=== PATIENT | female | born 1935 | race Caucasian/White ===

== ENCOUNTER → 2020-04-29 | Outpatient (REF) ==
[~2020-04-29] MED LIST: ARICEPT 5MG PO; ASPIRIN 81M81 MG/TA2 PO; COLACE 100100 MG/CAP PO; IMODIUM 2MG CAPS2 MG; KLOR-CON M2020 MEQ PO; LASIX 20MG TABL20 MG; LASIX 20MG TABL20 MG PO; LASIX 40MG TABL40 MG PO; MULTI VITAMINS1 TAB PO; NAMENDA 10MG TA10 MG PO; NO HOME MEDICATIONS; NORCO 325 MG-51 TAB PO; PERCOCET 325 MG1 TA2 PO; SODIUM BICARBO650 MG PO; TOPROL XL 25MG25 MG PO; VITAMIN D31000 IU PO; ZESTRIL 20MG TA20 MG PO
== END ==
LOC: ZCOL.LAB 13:01
DX: E87.5 Hyperkalemia (principal)

== ENCOUNTER 2020-08-12 17:33 | Inpatient (IN) | payer MEDICARE, OTHER ==
[~2020-08-12] VITALS: Ht 160 cm; Wt 54.1 kg
[2020-08-12 18:40] LABS: BASO % 0.1 % (0.0-2.0); GRAN # 11.7 (1.4-6.5); GRAN % 83.5 % (42.2-75.2); HEMATOCRIT 39.3 % (37.0-47.0); HEMOGLOBIN 12.2 g/dl (12.5-16.0); LYMPH # 0.9 (1.2-3.4); LYMPH % 6.5 % (20.0-51.0); MEAN CELL VOLUME 97 fl (80.0-100.0); MEAN CORPUSCULAR HEMOGLOBIN 30 pg (27.0-31.0); MEAN CORPUSCULAR HGB CONC 31 g/dl (33.0-37.0); MEAN PLATELET VOLUME 11.4 fl (7.4-10.4); MONO # 1.3 (0.1-0.6); MONO % 9.3 % (1.7-9.3); PLATELET COUNT 251 K/mm3 (130-400); RED BLOOD COUNT 4.05 M/mm3 (4.10-5.30); REDCELL DISTRIBUTION WIDTH-CV 15.1 % (11.5-14.5)
[2020-08-12 19:05] LABS: BILIRUBIN,TOTAL 0.6 mg/dL (0.0-1.0); C-REACTIVE PROTEIN 7.4 mg/dL (0.0-0.9); CALCIUM 8.6 mg/dL (8.4-10.2); CREATININE, serum 1.41 (0.52-1.25); TOTAL PROTEIN 7.4 gm/dL (6.4-8.2)
[2020-08-12 19:13] LABS: POTASSIUM 4.6 mmol/L (3.4-5.0)
[2020-08-12 19:13] LABS: COLLECTION METHOD CATHETER
[2020-08-12 19:19] LABS: MUCOUS Present /lpf; PH 7 (5-8); SQUAMOUS EPITHELIAL 0-2 /hpf; URINE APPEARANCE Clear; URINE BACTERIA None Seen /hpf; URINE BILIRUBIN Negative (NEGATIVE); URINE BLOOD Negative (NEGATIVE); URINE COLOR Yellow; URINE GLUCOSE Negative (NEGATIVE); URINE KETONE 1+ (NEGATIVE); URINE LEUKOCYTE ESTERASE Negative (NEGATIVE); URINE NITRATE Negative (NEGATIVE); URINE PROTEIN(semi-quant) 2+ (NEGATIVE); URINE UROBILINOGEN Negative (NEGATIVE); URINE WBC 0-2 /hpf
[2020-08-12 19:57] LABS: ARTERIAL BLD GAS O2 SATURATION 93.9 % (92-100); ARTERIAL BLOOD GAS BASE EXCESS -8.3 (-2-2); ARTERIAL BLOOD GAS HCO3 15.2 meq/L (22-26); ARTERIAL BLOOD GAS PCO2 26.2 mmHg (35-45); ARTERIAL BLOOD GAS PO2 71.4 mmHg (80-100); ARTERIAL BLOOD GAS pH 7.38 (7.35-7.45)
[2020-08-12 21:23] LABS: TROPONIN-I 0.075 ng/mL (0.000-0.035)
[2020-08-12 22:57] VITALS: BP 127/80; PULSE 80; TEMP 97.4
--- NOTE | 2020-08-13 01:33 | NUR ---
PT TRANSFERRED TO MEDICAL FLOOR VIA ED STAFF AT 2230. PT DROWSY AND UNABLE TO HOLD CONVERSATION. PT CONTINUES TO EASILY FALL IN AND OUT OF SLEEP. PT UNABLE TO RELAY ADMIT ASSESMENT INFORMATION. NURSE CALLED PT'S CHELLE JI. Oscar WAS ABLE TO ANSWER SOME BUT NOT ALL QUESTIONS ON ASSESMENT. OSCAR WAS UNABLE TO PROVIDE RELIABLE MEDICATION LIST. NURSE WILL RELAY TO DAY SHIFT TO CALL PTS PHARMACY IN THE MORNING TO OBTAIN UP TO DATE MEDICATION LIST. PT VSS, A/OX2, 02 NC 3L, ASSESMENT COMPLETED. INTERVENTIONS COMPLETED. L/R INFUSING AT 75ML/HR VIA RIGHT FA INT. NURSE WILL CONTINUE TO F/U AND MONITOR PT. CALL LIGHT WITHIN REACH. BED LOW. ALL NECCESARY ITEMS CLOSE TO PT. NURSE WILL CONTINUE TO REPOSITION PT X2 HOURS.
--- NOTE | 2020-08-13 03:21 | NUR ---
AT THIS TIME PT RAN 13 BEATS OF VTACH, REPORTED BY TELE MONITOR, PT WAS SLEEPING THROUGHT VTACH RUN, PT ASYMPTOMATIC, VSS, EKG ORDERED AND CONDUCTED; RESULTS READ: SINUS RYTHM WITH TX INTERVAL WITH FREQUENT SUPRAVENTRICAL PREMATURE COMPLEXES. NURSE WILL CONTINUE TO MONITOR PT. CALL LIGHT WITHIN REACH.
[2020-08-13 03:25] VITALS: BP 119/84; PULSE 86; TEMP 97.5
--- NOTE | 2020-08-13 04:57 | NUR ---
PT SLEPT THROUGH OUT NIGHT, 02 2L NC, VSS, TELE RUNNING A-FIB/FLUTTER PT ASYMPTOMATIC, DENIES PAIN,SOB. CALL LIGHT WITHIN REACH.
[2020-08-13 06:27] LABS: BASO % 0.1 % (0.0-2.0); GRAN # 11.7 (1.4-6.5); GRAN % 85.3 % (42.2-75.2); HEMOGLOBIN 11.1 g/dl (12.5-16.0); LYMPH # 0.7 (1.2-3.4); MEAN CELL VOLUME 98 fl (80.0-100.0); MEAN CORPUSCULAR HEMOGLOBIN 30 pg (27.0-31.0); MEAN CORPUSCULAR HGB CONC 30 g/dl (33.0-37.0); MEAN PLATELET VOLUME 11.4 fl (7.4-10.4); MONO # 1.2 (0.1-0.6); PLATELET COUNT 219 K/mm3 (130-400); RED BLOOD COUNT 3.73 M/mm3 (4.10-5.30); REDCELL DISTRIBUTION WIDTH-CV 15.3 % (11.5-14.5)
[2020-08-13 06:30] LABS: HEMATOCRIT 36.5 % (37.0-47.0)
[2020-08-13 06:48] LABS: CALCIUM 7.9 mg/dL (8.4-10.2); CREATININE, serum 1.28 (0.52-1.25); POTASSIUM 4.2 mmol/L (3.4-5.0)
[2020-08-13 06:57] LABS: TROPONIN-I 0.067 ng/mL (0.000-0.035)
[2020-08-13 08:24] VITALS: BP 130/80; PULSE 89; TEMP 97.9
--- NOTE | 2020-08-13 10:32 | NUR ---
Pt sleeping upon entry to room, easily wakened falls asleep readily. No noticable signs Pt is in pain. Shift assessment complete, left Pt call light in reach, bed in lowest psoition, alarm on.
[2020-08-13 11:27] VITALS: BP 147/86; PULSE 89; TEMP 97.8
[2020-08-13 16:34] VITALS: BP 142/90; PULSE 73; TEMP 98
--- NOTE | 2020-08-13 18:08 | NUR ---
Pt has been resting in the bed today, sleeping on and off, Pt easily awakened. Pt is in no appearant signs of distress, or pain. VS have been stable. Pt has not had a bowel movement or urinated today during the day shift.
[2020-08-13 18:53] VITALS: BP 147/86; PULSE 97; TEMP 98
--- NOTE | 2020-08-13 20:00 | NUR ---
Report received, assumed care for caustic cresylate shift superintendent. Assessment complete. Not oriented-opens eyes to voice but unable to state where she is or why. Does state she has no pain/nausea. O2@3L/NC. No s/s of being SOA at rest. LR@75mls/hr to right AC IV. Noted to have bilat coarse Upper lobe breath sounds-diminished bases. Plan of care discussed for this shift for NPO status/HS meds/antibioics/tests in the AM. Call light in reach/bed alarm on. Will monitor.
[2020-08-13 23:12] VITALS: BP 140/87; PULSE 86; TEMP 97.9
--- NOTE | 2020-08-13 23:52 | NUR ---
Very confused tonight. Turning paper production engineer light every few minutes-unaware of where is she is or why. Denies any questions/concerns. Call light in reach. Will monitor.
--- NOTE | 2020-08-14 02:00 | NUR ---
Noted to have no output charted today. Spoke with [facility] PCT who states she did void approx 100ml earlier in shift. Bladder scan done at this time by this nurse-250ml. Assisted up to comode-did void approx 60mls and was incontinent of urine as well. Urine sent to lab. Will monitor.
[2020-08-14 03:15] VITALS: BP 143/94; PULSE 93; TEMP 97.9
--- NOTE | 2020-08-14 05:55 | NUR ---
Rested off and on this shift. Remained confused. Has been NPO due to ST eval. O2@3L/NC with adequate O2 satruations. Denied pain/nausea. Stand by/1 assist to bedside commode with walker. Is incontinent of urine-will call to use bathroom but has already voided in brief-will void again in commode. LR@75ml/hr. Denies current needs/questions/concerns. Call light in reach. Will monitor.
[2020-08-14 06:24] LABS: BASO % 0.1 % (0.0-2.0); GRAN % 87.5 % (42.2-75.2); HEMATOCRIT 38.1 % (37.0-47.0); HEMOGLOBIN 11.6 g/dl (12.5-16.0); LYMPH # 0.6 (1.2-3.4); LYMPH % 4.3 % (20.0-51.0); MEAN CELL VOLUME 100 fl (80.0-100.0); MEAN CORPUSCULAR HEMOGLOBIN 31 pg (27.0-31.0); MEAN CORPUSCULAR HGB CONC 30 g/dl (33.0-37.0); MEAN PLATELET VOLUME 11.2 fl (7.4-10.4); MONO % 7.5 % (1.7-9.3); PLATELET COUNT 232 K/mm3 (130-400); REDCELL DISTRIBUTION WIDTH-CV 15.9 % (11.5-14.5)
[2020-08-14 06:36] LABS: CREATININE, serum 1.21 (0.52-1.25); POTASSIUM 4.6 mmol/L (3.4-5.0)
--- NOTE | 2020-08-14 07:09 | NUR ---
Patient resting in bed at this time. NS running at 75 ml/hr. O2 running at 3L via nasal cannula. Patient denies any pain, discomfort, or futher needs at this time. Will continue to monitor. Call light in reach. Fall precautions in place.
[2020-08-14 08:36] VITALS: BP 128/90; PULSE 95; TEMP 98.3
--- NOTE | 2020-08-14 09:48 | NUR ---
Morning meds held until ST evaluation. Assessment performed. Patient denies any pain, discomfort, or SOA. Will continue to monitor. Call light in reach. Fall precautions in place.
--- NOTE | 2020-08-14 10:14 | NUR ---
Initial visit; Process Steward offered God's blessings to patient who was receptive to having Process Steward keep her in Process Steward's prayers.
[2020-08-14 12:34] VITALS: BP 134/86; PULSE 107; TEMP 97.8
--- NOTE | 2020-08-14 13:00 | NUR ---
The patient has advanced dementia. SW attempted to contact the patient's , Roland (ph#[phone]), to discuss discharge plan. SW left him a voicemail. SW then contacted the patient's daughter, Monica (ph#[phone]), to complete intake. The patient lives in [place] with Roland. Monica reports that the patient needs assistance with her ADLs and that she has a cane and walker. She states that the patient also receives home health services for senior care once a week from [facility]. MAGGIE contacted Angie at [facility] and confirmed services. The patient's PCP is Dr. Benny Valadez and she receives her medications from [facility]. The patient does not have a DPOA-HC in EMR, but Monica reports that the patient does not have one completed and that it designates her. Monica states that she can email or fax the DPOA-HC to SW later today. PT is recommending SNF or SB. MAGGIE discussed their recommendation with Monica. Monica is agreeable to SNF. She states that she needs to talk to Roland about who they would prefer, but believes that he would want [facility]. Monica was agreeable for MAGGIE to send a referral to [facility]. Monica reports that she will contact SW back later today with their official preferences. MAGGIE contacted and faxed a referral to Claudia at [facility]. Awaiting screen. *Discharge plan: SNF*
--- NOTE | 2020-08-14 15:54 | NUR ---
Claudia, at [facility], reports that they should be able to take the patient as long they have a room available. She reports that the patient has a gluten intolerance & allergy and that they just want to make sure the doctor is okay with the patient going to them, since they are not a gluten free facility. SW notified the patient's PA. The PA reports that the patient may be able to d/c tomorrow. SW attempted to contact the patient's , Roland, again. SW left him a voicemail. SW contacted and updated the patient's daughter, Monica. Monica states that [facility] would be their first preference and she was agreeable with the patient going there upon discharge.
[2020-08-14 16:41] VITALS: BP 127/86; PULSE 88; TEMP 98.2
--- NOTE | 2020-08-14 19:16 | NUR ---
Patient has had an uneventful day. Echo done, results pending. Patient's input has been poor. She has been refusing to eat and has only had a 240 ml in today. LR has been DC'd. Patient has continued to be confused. Reorientation unsuccessful. Patient denies any pain, discomfort, or futher needs at this time. O2 running at 2L per nasal cannula. Fall precautions in place. Call light in reach. Bedside report given to ANNA Phillips.
[2020-08-14 20:51] VITALS: BP 124/88; PULSE 78; TEMP 97.9
[2020-08-15] VITALS (338 sets, daily range): BP systolic 110–126; BP diastolic 82–99; PULSE 87–101; TEMP 97.4–98; O2SAT 71–100
--- NOTE | 2020-08-15 01:15 | NUR ---
PT LAYING IN BED, A/OX2, O2 NC 2L, VSS, ANTIBIOTIC INFUSING VIA L HAND IV AT 100 ML/HR. NURSE CONDUCTED COVID SWAB FOR 08/15 FACILITY PLACEMENT, PENDING RESULTS. PT ATE 20 PERCENT OF SUPPER, NURSE HAS OFFERED SNACK, PT REFUSED, NURSE OFFERED ORANGE JUICE, PT ACCEPTED. PT DENIES PAIN. PT EXPRESSES NO ADDITIONAL NEEDS AT THIS TIME. CALL LIGHT WITHIN REACH.
--- NOTE | 2020-08-15 06:16 | NUR ---
PT CHANGED AND DRIED. PT REPOSITIONED. PT EXPRESSES NO ADDITIONAL NEEDS AT THIS TIME. CALL LIGHT WITHIN REACH.
[2020-08-15 06:46] LABS: HEMATOCRIT 37.3 % (37.0-47.0); HEMOGLOBIN 11.3 g/dl (12.5-16.0); MEAN CELL VOLUME 98 fl (80.0-100.0); MEAN CORPUSCULAR HEMOGLOBIN 30 pg (27.0-31.0); MEAN CORPUSCULAR HGB CONC 30 g/dl (33.0-37.0); MEAN PLATELET VOLUME 11.4 fl (7.4-10.4); PLATELET COUNT 220 K/mm3 (130-400); RED BLOOD COUNT 3.82 M/mm3 (4.10-5.30); REDCELL DISTRIBUTION WIDTH-CV 16.1 % (11.5-14.5)
[2020-08-15 06:47] LABS: CALCIUM 7.7 mg/dL (8.4-10.2); CREATININE, serum 1.21 (0.52-1.25); POTASSIUM 4.6 mmol/L (3.4-5.0)
--- NOTE | 2020-08-15 07:44 | NUR ---
At approximately 0650 during shift change, Nurse recieved call from Telemetry concerning pt, PT's heart rate was running in the 200's, nurse ran vital signs, confirmed pt history and relayed code status to staff. Pt was A/0x3, pt was able to respond to nurses questions, Pt stated she was experiencing chest pain and denied difficulty breathing. ICU nurseLoc was called and arrived to patients room at approximatly 0655, Glass Cylinder Flanger Bart arrived simultaneously. At 0703 Dr. Fenton was contacted by charge nurse, no new orders were received. At approximately 0705 PA Jerry) arrived to pts room and conducted her immediate assesment. At about 0710 Tammy called family and cofirmed code status of Full resusciatation and provided necessary relevant information. At 0712 6mg Adenosine administered via IV push, following BP 97/79. Following B/P reading 109/72. at 0726 EKG ordered, EKG obtained; sinus tachycardia recorded. at 0735 Dr. Fenton arrived. Nurse received orders to transfer pt to ICU and pt will remain NPO. Nurse will transfer pt. Nurse will continue to monitor.
--- NOTE | 2020-08-15 07:44 | NUR ---
0703 ekg order placed and was being obtained, called thalia called about pt inc hr on tele. Loc, icu nurse and brody plumbing warehouse helper already in room with cnc machinist 2nd shift nurse. no new orders at this time.
[2020-08-15 09:03] LABS: HEMOGLOBIN 11.5 g/dl (12.5-16.0); MEAN CELL VOLUME 99 fl (80.0-100.0); MEAN CORPUSCULAR HEMOGLOBIN 31 pg (27.0-31.0); MEAN CORPUSCULAR HGB CONC 31 g/dl (33.0-37.0); MEAN PLATELET VOLUME 11.5 fl (7.4-10.4); PLATELET COUNT 225 K/mm3 (130-400); RED BLOOD COUNT 3.73 M/mm3 (4.10-5.30); REDCELL DISTRIBUTION WIDTH-CV 16.1 % (11.5-14.5)
[2020-08-15 09:33] LABS: LYMPHOCYTE 9 % (20.0-51.0); NEUTROPHILS 89 % (42.0-75.2)
[2020-08-15 09:34] LABS: HYPOCHROMIA 1+; PLATELET ESTIMATE NORMAL (NORMAL)
--- NOTE | 2020-08-15 09:40 | NUR ---
PT ARRIVED FROM MEDICAL FLOOR. PT IS LETHARGIC AND ONLY ORIENTED TO SELF. PT IS ON 4L OXYMASK AND TACHPNIC. PT APPEARS SR WITH PAC/PJC ON TELE. SANJU SANDERS BEDSIDE. PT APPEARS TO LETHARGIC FOR PO MEDS. 1015- SPOKE WITH BEDSIDE. PT MADE IMCU STATUS. ORDER FOR BOSCH, LASIX, AND FLUIDS. CONSULTED. CT CALLED REGARDING ORDER. WILL CONTINUE TO MONITOR.
--- NOTE | 2020-08-15 09:56 | NUR ---
The patient is currently in ICU. Chainstitch Binder attended clinical rounds with the team. Cardiology consulted. CT scan this day. SW to fax updates to Claudia at [facility]. *Discharge Disposition: SNF. [facility] accepted and pending bed availablity at discharge.
--- NOTE | 2020-08-15 10:47 | NUR ---
The patient transferred down to ICU. MAGGIE received a copy of the patient's DPOA-HC, via email, from the patient's daughter (Monica). The patient's DPOA-HC is Monica. MAGGIE notified ICU outreach and education social worker, Gaby. MAGGIE to provide Gaby with the copy of the DPOA-HC.
--- NOTE | 2020-08-15 11:04 | NUR ---
0940 SANJU NOTIFIED OF TROPONIN.
[2020-08-15 11:21] LABS: LYME DISEASE ANTIBODIES Negative (Negative)
--- NOTE | 2020-08-15 13:22 | NUR ---
Follow-up visit; Patient thanked Environmental Science Instructor for prayer and God's blessings.
--- NOTE | 2020-08-15 20:08 | NUR ---
Received report from ANNA Navarro. All medications verified and all questions answered. Patient resting in bed watching TV. VSS. Will resume care of patient at this time.
[2020-08-16] VITALS (555 sets, daily range): BP systolic 95–116; BP diastolic 72–84; PULSE 76–83; TEMP 96.1–98.8; O2SAT 70–100
--- NOTE | 2020-08-16 01:15 | NUR ---
This nurse noted 2xm skin tear on patient lower right extremity. Edges well approximated, CLAUDE.
[2020-08-16 02:26] LABS: PARTIAL THROMBOPLASTIN TIME 61.1 SECONDS (26.0-37.0)
[2020-08-16 06:45] LABS: BASO % 0.1 % (0.0-2.0); EOS % 0.1 % (0-4.0); GRAN # 11.7 (1.4-6.5); GRAN % 82.3 % (42.2-75.2); HEMATOCRIT 38.6 % (37.0-47.0); HEMOGLOBIN 11.9 g/dl (12.5-16.0); LYMPH # 0.8 (1.2-3.4); LYMPH % 5.8 % (20.0-51.0); MEAN CELL VOLUME 101 fl (80.0-100.0); MEAN CORPUSCULAR HEMOGLOBIN 31 pg (27.0-31.0); MEAN CORPUSCULAR HGB CONC 31 g/dl (33.0-37.0); MEAN PLATELET VOLUME 11.3 fl (7.4-10.4); MONO # 1.5 (0.1-0.6); MONO % 10.4 % (1.7-9.3); PLATELET COUNT 165 K/mm3 (130-400); RED BLOOD COUNT 3.84 M/mm3 (4.10-5.30); REDCELL DISTRIBUTION WIDTH-CV 16.5 % (11.5-14.5)
[2020-08-16 07:40] LABS: CREATININE, serum 1.34 (0.52-1.25); MAGNESIUM 1.8 mg/dL (1.6-2.3); POTASSIUM 5.5 mmol/L (3.4-5.0)
--- NOTE | 2020-08-16 07:45 | NUR ---
REPORT RECIEVED FROM AD RN, ALL QUESTIONS ANSWERED. PATIENT FOUND ALERT SITTING UP IN BED. PATIENT ORIENTED X1. HEART SOUNDS REGULAR, LUNG SOUNDS CLEAR, BOWEL SOUNDS AUDIBLE. INDWELLING BOSCH IN PLACE DRAINING CLEAR YELLOW URINE. NO S/S PAIN NOTED. PATIENT IS NPO AT THIS TIME FOR THORACENTISIS. SPOKE WITH MD IN REGARDS TO CARE. CONSULT TO TULIO SHIPMAN IN PLACE. AWAITING PHYSICIAN TO SPEAK WITH DPOA. CALL SALDANA WITHIN REACH, WILL CONTINUE TO MONITOR.
--- NOTE | 2020-08-16 09:32 | NUR ---
Hospitalist staffed with Laboratory Operations Coordinator. Palliative care consult ordered.
--- NOTE | 2020-08-16 10:42 | NUR ---
I sat with patient for a period of time this morning. She asked me if she was dying this morning when I got there and kept looking toward the door. I held her hand and told her we were trying to get hold of her daughters and to talk about her care. She dozes off frequently, tried removing her 02 earlier but did agree to keep it on when asked to. Most of her speech is very raspy, soft, and difficult to understand. I did talk with her DPOA-HC/daughter Maria Teresa . She is in [place]. I have not been able to reach Chayito Green or her Roland. I did talk with Maria Teresa about palliative care and some of the choices that they want want to consider. Currently Lacey is scheduled for a thoracentesis but with her worsening condition, the family may want to look at comfort care as an option. I did advise Sun that Dr Gillis should be calling her also and then encouraged the family to talk about Lacey' situation and what she would want done. I briefly reviewed sites that hospice can be provided if that is the direction they choose to go.
--- NOTE | 2020-08-16 15:25 | NUR ---
Recieved call from seth Green just now. She is on her way to the hospital and will try to be here fairly soon. She reports that her Dad is on dialysis 3x/wk and is her mother's caregiver. She is concerned that her mother isn't being changed and bathed as often as she should and that her father is not understanding the importance of her intake and general care. I did discuss with her that we would be looking at continuing aggressive care vs supportive care vs comfort care and that her current code status is full code. Hoping that family can relook at her situation and clarify goals of care.
--- NOTE | 2020-08-16 16:06 | NUR ---
Met with after talking with daughter, Chayito. She has not arrived at the hospital yet. Dr Gillis has spoken with the daughter who recognizes that Mom is very ill but still wants aggressive care at this point. Pt remains a full code. PICC line is being placed and thoracentsis is planned. does report that he is trying to get extra help at home but "it costs too much". Will continue to follow along with family but at this time she remains on aggressive cares.
--- NOTE | 2020-08-16 16:26 | NUR ---
Iman at bedside, PICC to right upper arm complete. X-ray and lab at bedside for verification.
--- NOTE | 2020-08-16 19:00 | NUR ---
CARDIOLOGY MADE AWARE OF DECREASED OUTPUT, AND CURRENT MEDICAL STATUS.
--- NOTE | 2020-08-16 19:15 | NUR ---
Dr. Trotter came to receive update on patient, ANNA Hopson and this RN gave brief update on patient status. Received orders for bumex gtt, dobutamine gtt, dopamine gtt and nitro gtt to be started. Received orders for patient to have ECHO completed on 08/17 in the AM.
--- NOTE | 2020-08-16 19:53 | NUR ---
Received report from ANNA Hopson. All medications verified and all questions answered. Patient resting in bed with daughter and at bedside. VSS. Will resume care at this time.
[2020-08-17] VITALS (687 sets, daily range): BP systolic 102–136; BP diastolic 60–89; PULSE 76–92; TEMP 96.5–98.3; O2SAT 76–100
[2020-08-17 04:51] LABS: BASO % 0.1 % (0.0-2.0); GRAN # 12.4 (1.4-6.5); GRAN % 87.4 % (42.2-75.2); HEMOGLOBIN 10.9 g/dl (12.5-16.0); LYMPH # 0.6 (1.2-3.4); LYMPH % 4.4 % (20.0-51.0); MEAN CELL VOLUME 100 fl (80.0-100.0); MEAN CORPUSCULAR HEMOGLOBIN 30 pg (27.0-31.0); MEAN CORPUSCULAR HGB CONC 30 g/dl (33.0-37.0); MEAN PLATELET VOLUME 11.1 fl (7.4-10.4); MONO % 6.8 % (1.7-9.3); PLATELET COUNT 167 K/mm3 (130-400); RED BLOOD COUNT 3.67 M/mm3 (4.10-5.30); REDCELL DISTRIBUTION WIDTH-CV 16.5 % (11.5-14.5)
[2020-08-17 04:53] LABS: HEMATOCRIT 36.5 % (37.0-47.0)
[2020-08-17 04:58] LABS: CALCIUM 6.2 mg/dL (8.4-10.2); CREATININE, serum 1.92 (0.52-1.25); MAGNESIUM 1.7 mg/dL (1.6-2.3)
--- NOTE | 2020-08-17 08:01 | NUR ---
AFTER BEGINNING TREATMENT, PT REMOVED MASK AND REFUSE TO CONTINUE. PLACED PT BACK ON OM AT 5LPM
--- NOTE | 2020-08-17 09:51 | NUR ---
Pt remains on aggressive care at this time. No family at bedside.
--- NOTE | 2020-08-17 10:00 | NUR ---
RIGHT SIDED THORACENTISIS COMPLETE, REMOVED 1400 ML FLUID. SENT TO LAB. CHEST X RAY OBTAINED.
[2020-08-17 11:21] LABS: GLUCOSE,PLEURAL FLUID 112 mg/dL
[2020-08-17 11:24] LABS: PLEURAL FLUID RBC 0 /mm3 (0-0); PLEURAL FLUID WBC 373 /mm3
[2020-08-17 11:26] LABS: PLEURAL FLUID COLOR YELLOW
[2020-08-17 11:27] LABS: PLEURAL FLUID APPEARANCE HAZY
[2020-08-17 11:42] LABS: TOTAL PROTEIN,PLEURAL FLUID < 2.0 gm/dL
--- NOTE | 2020-08-17 12:00 | NUR ---
PATIENT REMOVED PERIPHERAL LINES TO LEFT HAND AND FOREARM. WHEN ASKED IF SHE WANTED MEDICATION, SHOOK HER HEAD NO. STATES "IM DYING" FAMILY MADE AWARE OF PATIENTS WISHES AT THIS TIME. WILL CONSULT WITH MD.
--- NOTE | 2020-08-17 13:22 | NUR ---
HAZEL CORBETT CALLED, USING 2 RN OBTAINED CONSENT FOR DRN AND COMFORT CARE. MD AWARE OR FAMILY WANTS
--- NOTE | 2020-08-17 13:50 | NUR ---
PER MD CONTINUE AMIO, BUMEX, AND DOPAMINE. PATIENT DOES NOT HAVE PERIPHERAL LINES TO SUPPORT ALL DRIPS AT THIS TIME. PAITIENTS FAMILY IS WANTING COMFORT CARE AT THIS TIME. MD WOULD LIKE TO WAIT UNTIL ALL FAMILY MEMBERS CAN BE PRESENT. DAUGHTER AT BEDSIDE.
--- NOTE | 2020-08-17 14:11 | NUR ---
Per report that patient reports that she is done with treatment and has removed her IV. Daughter Chayito Green is at bedside and texting back and forth with her two other sisters who are flying into [place] a little later. is at dialysis but should be arriving soon. Phone call was placed to Maria Teresa LOUIS who agreed that comfort care is the direction that the family want he care to follow and pt has also expressed this. Support provided to chayito who also supports this decision. Comfort quilt provided to patient with explanation. I did talk with Chayito today about [facility] to provide comfort care to her mother and the family during this time/ Questions were invited and answered but at this time we are waiting for remainder of family to arrive.
--- NOTE | 2020-08-17 14:28 | NUR ---
Livia Bass, Palliative care nurse staffed with this SW regarding the patient. The patient and family have decided on comfort measures. The patient's is in dialysis at this time and will visit the patient shortly. The patient's daughter Monica to fly to [place] this day. The patient's daughter, Chayito at beside with Livia.
--- NOTE | 2020-08-17 16:31 | NUR ---
Launch Leader met with patient's daughter, Chayito regarding next steps and options. Chayito states home with hospice not an option. SW discussed alf with hospice and the [facility]. She would like a referral sent to [facility]. MAGGIE sent referral to Amy at the [facility]. Discharge dispositon: [facility]. Awaiting screen.
--- NOTE | 2020-08-17 20:00 | NUR ---
PATIENT COOPERATES AGREES TO PAIN MEDICATION "JUST A LITTLE BIT" MOANS OFF AND ON DURING ASSESSMENT, SKIN COLOR IMPROVING IN LOWER EXTREMITIES, PLAE COOL DRY TO TOUCH, OLD WOUNDS HEALING, AFTER MED ADMINISTRATION PATIENT REFUSES ORAL MEDS AND WATER, WILL CLOSE MOUTH TIGHT WHEN APPROACHED
[2020-08-18] VITALS (177 sets, daily range): BP systolic 130–145; BP diastolic 72–97; PULSE 79–85; TEMP 97.8–98.3; O2SAT 84–100
--- NOTE | 2020-08-18 00:17 | NUR ---
FAMILY HERE WITH DPOA, IN TALK WITH PROVIDER ABOUT COMFORT CARE
--- NOTE | 2020-08-18 04:09 | NUR ---
PATIENT EASILY BECOMES INCOHERENT EYES ROAM ABOUT THE ROOM, NEXT MOMENT DURING CONVERSATION PATIENT RESPONDS APROPRIATELY
[2020-08-18 06:12] LABS: BASO % 0.1 % (0.0-2.0); GRAN # 14.1 (1.4-6.5); HEMATOCRIT 37.9 % (37.0-47.0); HEMOGLOBIN 11.4 g/dl (12.5-16.0); LYMPH # 0.6 (1.2-3.4); LYMPH % 3.7 % (20.0-51.0); MEAN CELL VOLUME 101 fl (80.0-100.0); MEAN CORPUSCULAR HEMOGLOBIN 30 pg (27.0-31.0); MEAN CORPUSCULAR HGB CONC 30 g/dl (33.0-37.0); MEAN PLATELET VOLUME 10.9 fl (7.4-10.4); MONO # 1.1 (0.1-0.6); MONO % 6.9 % (1.7-9.3); PLATELET COUNT 137 K/mm3 (130-400); RED BLOOD COUNT 3.76 M/mm3 (4.10-5.30); REDCELL DISTRIBUTION WIDTH-CV 16.6 % (11.5-14.5)
[2020-08-18 06:29] LABS: ALBUMIN 2.6 gm/dL (3.5-5.0); BILIRUBIN,TOTAL 0.7 mg/dL (0.0-1.0); CALCIUM 6.1 mg/dL (8.4-10.2); CREATININE, serum 2.02 (0.52-1.25); POTASSIUM 4.3 mmol/L (3.4-5.0); TOTAL PROTEIN 5.4 gm/dL (6.4-8.2)
--- NOTE | 2020-08-18 09:00 | NUR ---
No family present - called to inform of pt's labored breathing and lethargy - reports he might not be able to visit unitl noon
--- NOTE | 2020-08-18 09:23 | NUR ---
Follow-up prayer and offering of God's Peace.
--- NOTE | 2020-08-18 09:33 | NUR ---
Propagator Laborer was contacted by Amy with the [facility]. Amy states she is going to contact the patient's daughter, Monica regarding admission. Amy states there is possibility the patient can be admitted this day. MAGGIE attempted to contact the patient's daughters regarding the above information, left message. MAGGIE collaborated the above information with the patient's nurse.
--- NOTE | 2020-08-18 11:33 | NUR ---
Pt heart rate noted to be in the 30's, pulse weak, respiratory rate 5, MD Elis notifed and on unit rapidly to talk with pt's daughter who arrived several minutes prior - MD Elis and pt's daughter agreed on Comfort Measures moving forward. Ativan and Scopolamine patch applied. 1145 Pt's and 2 other daughters arrived to visit. 1146 Time of called by myself and ANNA Ricks - MD Elis notified Livia Bass RN and Sharepoint Analyst called 1200 Chaplian at bedside
--- NOTE | 2020-08-18 11:35 | NUR ---
PT KASIA INTO [address]s. DR LO NOTIFIED AND STATES IS ON HIS WAY.
--- NOTE | 2020-08-18 12:07 | NUR ---
Call placed to [facility]. Patient is not a candidate for donation due to age. Both Eye/Tissue Donation have declined. Confirmation # [id number]. Call placed to Dr. Valadez office as a courtsey to make aware of of patient. Chaplian has been called and is on the way. Will check about arrangements when family is ready
--- NOTE | 2020-08-18 12:54 | NUR ---
Follow-up: Patient's family thanked Instruction Librarian for ministering to Iris and them at her . Instruction Librarian offered Spiritual Care and advised them that Social Work will guide them when they are ready.
--- NOTE | 2020-08-18 13:09 | NUR ---
The patient this day. There are no additional needs at this time.
--- NOTE | 2020-08-18 13:40 | NUR ---
Family has chosen [facility] @ [phone]. They have spoken with the family via phone and will be on the way to picking tech the patient
--- NOTE | 2020-08-18 14:37 | NUR ---
Pt departed with Services - 1 baig colored ring and 1 wrist watch sent with pt
== END 2020-08-18 14:37 | disposition expired | DRG 871 ==
LOC: COL.ER 17:33 → MEDICAL 20:42 → ICU 20:42 → MEDICAL 08-13 23:00 → ICU 08-15 09:33
PROVIDERS: Emergency Medicine; Internal Medicine; Internal Medicine Sleep Medicine; Nurse Practitioner; Nurse Practitioner Family; Physician Assistant; ADMIT Student in an Organized Health Care Education/Training Program
PROC: 02HV33Z Insertion of Infusion Device into Superior Vena Cava, Percutaneous Approach (ICD-10-PCS; 2020-08-16)
PROC: 0W993ZZ Drainage of Right Pleural Cavity, Percutaneous Approach (ICD-10-PCS; principal; 2020-08-17)
DX: A41.9 Sepsis, unspecified organism (principal); J18.9 Pneumonia, unspecified organism; J96.01 Acute respiratory failure with hypoxia; I21.A1 Myocardial infarction type 2; I26.99 Other pulmonary embolism without acute cor pulmonale; E43 Unspecified severe protein-calorie malnutrition; I50.33 Acute on chronic diastolic (congestive) heart failure; Z66 Do not resuscitate; Z51.5 Encounter for palliative care; G93.40 Encephalopathy, unspecified; N17.9 Acute kidney failure, unspecified; I13.0 Hypertensive heart and chronic kidney disease with heart failure and stage 1 through stage 4 chronic kidney disease, or unspecified chronic kidney disease; E87.2 Acidosis; I47.1 Supraventricular tachycardia; N18.9 Chronic kidney disease, unspecified; I27.20 Pulmonary hypertension, unspecified; I48.91 Unspecified atrial fibrillation; E86.0 Dehydration; E87.5 Hyperkalemia; F03.90 Unspecified dementia, unspecified severity, without behavioral disturbance, psychotic disturbance, mood disturbance, and anxiety; Z20.822 Contact with and (suspected) exposure to COVID-19; S30.860A Insect bite (nonvenomous) of lower back and pelvis, initial encounter; Z90.710 Acquired absence of both cervix and uterus; Z79.82 Long term (current) use of aspirin
CPT/HCPCS: 99223-AI; 99233-AI; 99239; A4314; C1751; J0282; J0692; J0696; J1160; J1250; J1265; J1644; J1650; J1940; J2060; J2270; J7030; J7060; J7120; Q9967